=== PATIENT | male | born 1940 | race Asian ===

== ENCOUNTER 2019-03-05 23:12 | Inpatient (IN) | payer MEDICARE, BC ==
[2019-03-05] MEDS: IPRATROPIUM (NEB) 0.5 MG/2.5 ML AMP INH (23:49)
[2019-03-05] MEDS: ALBUTEROL 0.083% (NEB) 2.5 MG/3 ML AMP INH (23:49)
[2019-03-06] MEDS ORDERED: ACETAMINOPHEN 325 MG TAB PO
[2019-03-06 00:06] LABS: MODE NASAL CANNULA; MetHgb Venous 0.2 %; Sample Type Blood venous; Site VENOUS LINE; Venous COHb 0.8 %; Venous Fraction OxyHgb 44.7 %; Venous Oxygen Sat 45.2 mmHG (55.0-75.0); Venous Total Hemglobin 14.6 g/dl
[2019-03-06 00:10] LABS: ADD MAN DIFF? NO
[2019-03-06 00:12] LABS: ABNORMAL IP MESSAGE 1; BASOPHILS % 0.5 % (0.0-2.0); EOSINOPHILS % 0.2 % (0.0-7.0); HEMATOCRIT 40.2 % (42.0-52.0); HEMOGLOBIN 12.9 g/dl (14.0-18.0); LYMPHOCYTES # 0.3 10^3/ul (0.8-2.9); LYMPHOCYTES % 4.2 % (15.0-51.0); MEAN CORPUSCULAR HEMOGLOBIN 31.8 pg (29.0-33.0); MEAN CORPUSCULAR HGB CONC 32.1 g/dl (32.0-37.0); MEAN PLATELET VOLUME 9.6 fl (7.4-10.4); MONOCYTE # 0.6 10^3/ul (0.3-0.9); MONOCYTES % 7.7 % (0.0-11.0); NEUTROPHILS % 86.9 % (39.0-77.0); PLATELET COUNT 291 10^3/UL (140-415); POSITIVE DIFF @See below; RED BLOOD COUNT 4.06 10^6/ul (4.70-6.10); RED CELL DISTRIBUTION WIDTH 13.6 % (11.5-14.5)
[2019-03-06 00:12] LABS: WHITE BLOOD COUNT 8.1 10^3/ul (4.8-10.8)
[2019-03-06 00:32] LABS: INR 1.05; PARTIAL THROMBOPLASTIN TIME 24.4 Sec (23.0-35.0); PROTIME 13.8 Sec (11.9-14.9); PT RATIO 1.1
[2019-03-06 00:34] LABS: ALANINE AMINOTRANSFERASE 17 IU/L (13-69); ALBUMIN/GLOBULIN RATIO 0.95; ALKALINE PHOSPHATASE 137 IU/L (42-121); ANION GAP 10 (5-13); ASPARTATE AMINO TRANSFERASE 29 IU/L (15-46); BILIRUBIN,INDIRECT 0.4 mg/dl (0-1.1); BILIRUBIN,TOTAL 0.4 mg/dl (0.2-1.3); BLOOD UREA NITROGEN 65 mg/dl (7-20); CALCIUM 10.4 mg/dl (8.4-10.2); CARBON DIOXIDE 28 mmol/L (21-31); CHLORIDE 104 mmol/L (97-110); CREATININE 1.29 mg/dl (0.61-1.24); SODIUM 142 mmol/L (135-144); TOTAL PROTEIN 8.2 g/dl (6.1-8.1)
[2019-03-06] MEDS: SODIUM CHLORIDE 0.9% 1L BAG IV* (00:39)
[2019-03-06] MEDS: CEFTRIAXONE 1 GM/50 ML (PMX) 50 ML IVPB ×2 (00:39→08:24)
[2019-03-06 00:51] LABS: GLUCOSE 897 mg/dl (70-220)
[2019-03-06 00:54] LABS: B-TYPE NATRIURETIC PEPTIDE 489 PG/ML (0-450); TROPONIN-I < 0.012 ng/ml (0.000-0.120)
[2019-03-06] MEDS ORDERED: DEXTROSE 50% 50 ML SYRINGE IV ×4 (01:00→17:30)
[2019-03-06] MEDS: AZITHROMYCIN 500MG/NS (PMX) 250 ML IV (01:14)
[2019-03-06] MEDS: SOD CHLORIDE 0.9% 1,000 ML IV ×2 (01:43→04:04)
[2019-03-06] MEDS: ACCU-CHEK XX ×11 (02:00→11:13)
[2019-03-06 02:11] LABS: LACTIC ACID 3.1 mmol/L (0.5-2.0)
[2019-03-06] MEDS: INSULIN HUMAN REGULAR 100 UNIT in SOD CHLORIDE 0.9% 99 ML IV (02:30)
[2019-03-06 03:34] LABS: ADD UMIC NO; UR ASCORBIC ACID 40 mg/dL (NEGATIVE); UR BILIRUBIN (Dip) NEGATIVE (NEGATIVE); UR BLOOD (Dip) NEGATIVE (NEGATIVE); UR CLARITY CLEAR (CLEAR); UR COLOR YELLOW (YELLOW); UR GLUCOSE (Dip) 3+ mg/dL (NEGATIVE); UR KETONES (Dip) NEGATIVE (NEGATIVE); UR LEUKOCYTE ESTERASE (Dip) NEGATIVE Leu/ul (NEGATIVE); UR NITRITE (Dip) NEGATIVE (NEGATIVE); UR SPECIFIC GRAVITY (Dip) 1.023 (1.003-1.030); UR TOTAL PROTEIN (Dip) NEGATIVE (NEGATIVE); UR UROBILINOGEN (Dip) NEGATIVE (NEGATIVE)
[2019-03-06] MEDS ORDERED: ALBUTEROL 0.083% (NEB) 2.5 MG/3 ML AMP HHN (04:00)
[2019-03-06 05:36] LABS: ADD MAN DIFF? NO
[2019-03-06 05:39] LABS: WHITE BLOOD COUNT 9.3 10^3/ul (4.8-10.8)
[2019-03-06 05:39] LABS: ABNORMAL IP MESSAGE 1; BASOPHILS % 0.4 % (0.0-2.0); EOSINOPHILS % 0.2 % (0.0-7.0); HEMATOCRIT 35.3 % (42.0-52.0); HEMOGLOBIN 11.6 g/dl (14.0-18.0); LYMPHOCYTES # 0.3 10^3/ul (0.8-2.9); LYMPHOCYTES % 3.5 % (15.0-51.0); MEAN CORPUSCULAR HEMOGLOBIN 32.2 pg (29.0-33.0); MEAN CORPUSCULAR HGB CONC 32.9 g/dl (32.0-37.0); MEAN CORPUSCULAR VOLUME 98.1 fl (82.0-101.0); MEAN PLATELET VOLUME 9.5 fl (7.4-10.4); MONOCYTE # 0.6 10^3/ul (0.3-0.9); MONOCYTES % 6.6 % (0.0-11.0); NEUTROPHIL # 8.3 10^3/ul (1.6-7.5); NEUTROPHILS % 88.7 % (39.0-77.0); PLATELET COUNT 275 10^3/UL (140-415); POSITIVE DIFF @See below
[2019-03-06 06:19] LABS: ANION GAP 10 (5-13); BLOOD UREA NITROGEN 55 mg/dl (7-20); CALCIUM 9.9 mg/dl (8.4-10.2); CARBON DIOXIDE 26 mmol/L (21-31); CHLORIDE 117 mmol/L (97-110); CREATININE 1.06 mg/dl (0.61-1.24); GLUCOSE 378 mg/dl (70-220); POTASSIUM 3.5 mmol/L (3.5-5.1); SODIUM 153 mmol/L (135-144)
[2019-03-06 06:25] LABS: TROPONIN-I < 0.012 ng/ml (0.000-0.120)
[2019-03-06 06:39] LABS: FREE T4 (FREE THYROXINE) 1.06 ng/dl (0.85-1.93)
[2019-03-06 07:30] LABS: LACTIC ACID 4.2 mmol/L (0.5-2.0)
[2019-03-06 07:43] LABS: BAND NEUTROPHILS #M 2.2 10^3/ul (0.0-0.6); BAND NEUTROPHILS % (M) 24 % (0-4); LYMPHOCYTES #M 0.1 10^3/ul (0.8-2.9); LYMPHOCYTES % (M) 2 % (15-51); MONOCYTE #M 0.3 10^3/ul (0.3-0.9); MONOCYTES % (M) 4 % (0-11); PLATELET ESTIMATE NORMAL; POIKILOCYTOSIS 1+ (0-0); POLYCHROMASIA 1+ (0-0); SEG NEUT #M 6.7 10^3/ul (1.6-7.5); SEGMENTED NEUTROPHILS (M) % 70 % (39-77); SMUDGE%M 40 % (0-0)
[2019-03-06] MEDS: ONDANSETRON 4 MG INJ IV (08:24)
[2019-03-06] MEDS: AZITHROMYCIN 500MG/NS (PMX) 250 ML IVPB (11:07)
[2019-03-06] MEDS ORDERED: POTASSIUM CHLORIDE 20 MEQ in SOD CHLORIDE 0.9% 1,000 ML IV (13:00)
[2019-03-06] MEDS ORDERED: POTASSIUM CHLORIDE 0 ML IVPB (13:03)
[2019-03-06] MEDS: POTASSIUM CHLORIDE 20 MEQ in SOD CHLORIDE 0.9% 1,000 ML IV (14:16)
[2019-03-06] MEDS: INSULIN ASPART [NOVOLOG] 3 ML PEN SC ×3 (14:18→20:17)
[2019-03-06 15:09] LABS: PROCALCITONIN 0.42 ng/mL (0.00-0.10)
[2019-03-06] MEDS ORDERED: GLUCOSE GEL 15 GRAM TUBE BUCCAL (17:30)
[2019-03-06] MEDS ORDERED: GLUCOSE GEL 15 GRAM TUBE PO ×2 (17:30)
[2019-03-06] MEDS ORDERED: GLUCAGON 1 MG INJ IM (17:30)
[2019-03-06] MEDS ORDERED: INSULIN ASPART [NOVOLOG] 3 ML PEN SC (17:35)
[2019-03-06 18:47] LABS: ANION GAP 7 (5-13); BLOOD UREA NITROGEN 37 mg/dl (7-20); CALCIUM 9.2 mg/dl (8.4-10.2); CARBON DIOXIDE 27 mmol/L (21-31); CHLORIDE 118 mmol/L (97-110); CREATININE 0.91 mg/dl (0.61-1.24); GLUCOSE 143 mg/dl (70-220); POTASSIUM 3.9 mmol/L (3.5-5.1); SODIUM 152 mmol/L (135-144)
[2019-03-06] MEDS: traZODone 50 MG TAB PO (20:14)
[2019-03-07] MEDS: POTASSIUM CHLORIDE 20 MEQ in SOD CHLORIDE 0.9% 1,000 ML IV ×4 (00:12→23:16)
[2019-03-07] MEDS: INSULIN ASPART [NOVOLOG] 3 ML PEN SC ×6 (00:16→21:07)
[2019-03-07] MEDS: ACCU-CHEK XX (02:00)
[2019-03-07] MEDS: morphine 4 MG/ML VIAL IV ×3 (02:20→17:45)
[2019-03-07 05:35] LABS: ABNORMAL IP MESSAGE 1; HEMATOCRIT 31.5 % (42.0-52.0); HEMOGLOBIN 9.8 g/dl (14.0-18.0); MEAN CORPUSCULAR HEMOGLOBIN 31.6 pg (29.0-33.0); MEAN CORPUSCULAR HGB CONC 31.1 g/dl (32.0-37.0); MEAN CORPUSCULAR VOLUME 101.6 fl (82.0-101.0); MEAN PLATELET VOLUME 9.7 fl (7.4-10.4); PLATELET COUNT 210 10^3/UL (140-415); POSITIVE DIFF @See below; RED CELL DISTRIBUTION WIDTH 14.2 % (11.5-14.5)
[2019-03-07 05:35] LABS: WHITE BLOOD COUNT 9.3 10^3/ul (4.8-10.8)
[2019-03-07 05:49] LABS: ADD MAN DIFF? YES
[2019-03-07 06:26] LABS: ANION GAP 5 (5-13); BLOOD UREA NITROGEN 28 mg/dl (7-20); CALCIUM 8.7 mg/dl (8.4-10.2); CARBON DIOXIDE 25 mmol/L (21-31); CHLORIDE 119 mmol/L (97-110); CREATININE 0.93 mg/dl (0.61-1.24); GLUCOSE 239 mg/dl (70-220); MAGNESIUM 2.2 mg/dl (1.7-2.5); PHOSPHORUS 3.7 mg/dl (2.5-4.9); POTASSIUM 4.7 mmol/L (3.5-5.1); SODIUM 149 mmol/L (135-144)
[2019-03-07] MEDS: CEFTRIAXONE 1 GM/50 ML (PMX) 50 ML IVPB (08:10)
[2019-03-07 10:20] LABS: BAND NEUTROPHILS #M 3.9 10^3/ul (0.0-0.6); BAND NEUTROPHILS % (M) 43 % (0-4); BURR CELLS 1+ (0-0); LYMPHOCYTES % (M) 1 % (15-51); MONOCYTES % (M) 1 % (0-11); PLATELET ESTIMATE NORMAL; POIKILOCYTOSIS 2+ (0-0); SEG NEUT #M 5.5 10^3/ul (1.6-7.5); SEGMENTED NEUTROPHILS (M) % 55 % (39-77); SMUDGE%M 5 % (0-0)
[2019-03-07] MEDS: AZITHROMYCIN 500MG/NS (PMX) 250 ML IVPB (10:35)
[2019-03-07] MEDS: HYDROGEN PEROXIDE 118 ML TOP (14:30)
[2019-03-07] MEDS: SILVER SULFADIAZINE 1% 25 GM CR TOP (17:11)
[2019-03-07] MEDS: IOHEXOL 300MG/ML 150 ML BTL (18:52)
[2019-03-07] MEDS: SOD CHLORIDE 0.9% 100 ML (18:52)
[2019-03-08] MEDS: ACCU-CHEK XX (02:00)
[2019-03-08] MEDS: INSULIN ASPART [NOVOLOG] 3 ML PEN SC ×6 (02:37→21:21)
[2019-03-08 06:14] LABS: WHITE BLOOD COUNT 9.6 10^3/ul (4.8-10.8)
[2019-03-08 06:14] LABS: ABNORMAL IP MESSAGE 1; HEMATOCRIT 31.6 % (42.0-52.0); HEMOGLOBIN 10.1 g/dl (14.0-18.0); MEAN CORPUSCULAR HEMOGLOBIN 32.2 pg (29.0-33.0); MEAN CORPUSCULAR VOLUME 100.6 fl (82.0-101.0); MEAN PLATELET VOLUME 9.3 fl (7.4-10.4); PLATELET COUNT 182 10^3/UL (140-415); POSITIVE DIFF @See below; RED BLOOD COUNT 3.14 10^6/ul (4.70-6.10); RED CELL DISTRIBUTION WIDTH 14.3 % (11.5-14.5)
[2019-03-08 06:49] LABS: ADD MAN DIFF? YES
[2019-03-08 07:12] LABS: ANION GAP 4 (5-13); BLOOD UREA NITROGEN 19 mg/dl (7-20); CALCIUM 8.8 mg/dl (8.4-10.2); CARBON DIOXIDE 24 mmol/L (21-31); CHLORIDE 119 mmol/L (97-110); CREATININE 0.84 mg/dl (0.61-1.24); GLUCOSE 143 mg/dl (70-220); POTASSIUM 4.3 mmol/L (3.5-5.1); SODIUM 147 mmol/L (135-144)
[2019-03-08] MEDS ORDERED: SILVER SULFADIAZINE 1% 25 GM CR TOP (09:00)
[2019-03-08] MEDS: SILVER SULFADIAZINE 1% 25 GM CR TOP (09:34)
[2019-03-08] MEDS: AZITHROMYCIN 500MG/NS (PMX) 250 ML IVPB (09:37)
[2019-03-08] MEDS: HYDROGEN PEROXIDE 118 ML TOP (09:48)
[2019-03-08 10:19] LABS: ANISOCYTOSIS 1+ (0-0); BAND NEUTROPHILS #M 2.8 10^3/ul (0.0-0.6); BAND NEUTROPHILS % (M) 30 % (0-4); BURR CELLS 1+ (0-0); EOSINOPHILS % (M) 1 % (0-7); LYMPHOCYTES #M 0.4 10^3/ul (0.8-2.9); LYMPHOCYTES % (M) 5 % (15-51); MONOCYTE #M 0.4 10^3/ul (0.3-0.9); MONOCYTES % (M) 5 % (0-11); MYELOCYTES % (M) 1 % (0-0); PLATELET ESTIMATE NORMAL; POIKILOCYTOSIS 2+ (0-0); SEG NEUT #M 5.8 10^3/ul (1.6-7.5); SEGMENTED NEUTROPHILS (M) % 58 % (39-77); SMUDGE%M 1 % (0-0)
[2019-03-08] MEDS: PIPER-TAZO 2.25 GM (PMX) 50 ML IVPB ×3 (12:50→23:36)
[2019-03-08] MEDS: CEFAZOLIN 1 GM/50 ML (PMX) 50 ML IVPB (15:36)
[2019-03-08] MEDS ORDERED: FENTAnyl 50 MCG/ML VIAL IV ×2 (16:30)
[2019-03-08] MEDS ORDERED: EPHEDrine 25 MG/5 ML SYG IV (16:30)
[2019-03-08] MEDS ORDERED: ONDANSETRON 4 MG INJ IV (16:30)
[2019-03-08] MEDS ORDERED: HYDROmorphONE 0.5 MG/0.5 ML SYG IV ×2 (16:30)
[2019-03-08] MEDS ORDERED: LABETALOL HCL 20MG INJ IV (16:30)
[2019-03-08] MEDS: POTASSIUM CHLORIDE 20 MEQ in SOD CHLORIDE 0.9% 1,000 ML IV ×2 (16:39→22:15)
[2019-03-08] MEDS: METOCLOPRAMIDE 10 MG INJ IV (21:19)
[2019-03-08] MEDS: morphine 4 MG/ML VIAL IV (21:19)
[2019-03-09] MEDS: INSULIN GLARGINE [LANTus] (100 UNITS/ML) SYG SC (00:03)
[2019-03-09] MEDS: INSULIN ASPART [NOVOLOG] 3 ML PEN SC ×6 (01:14→21:16)
[2019-03-09] MEDS: ACCU-CHEK XX (02:00)
[2019-03-09] MEDS: POTASSIUM CHLORIDE 20 MEQ in SOD CHLORIDE 0.9% 1,000 ML IV (03:45)
[2019-03-09] MEDS: PIPER-TAZO 2.25 GM (PMX) 50 ML IVPB (05:42)
[2019-03-09 06:43] LABS: ABNORMAL IP MESSAGE 1; HEMATOCRIT 30.1 % (42.0-52.0); HEMOGLOBIN 9.5 g/dl (14.0-18.0); MEAN CORPUSCULAR HEMOGLOBIN 31.4 pg (29.0-33.0); MEAN CORPUSCULAR HGB CONC 31.6 g/dl (32.0-37.0); MEAN CORPUSCULAR VOLUME 99.3 fl (82.0-101.0); MEAN PLATELET VOLUME 9.4 fl (7.4-10.4); PLATELET COUNT 177 10^3/UL (140-415); POSITIVE DIFF @See below; RED BLOOD COUNT 3.03 10^6/ul (4.70-6.10)
[2019-03-09 06:43] LABS: WHITE BLOOD COUNT 8.6 10^3/ul (4.8-10.8)
[2019-03-09 06:46] LABS: ADD MAN DIFF? YES
[2019-03-09 07:01] LABS: ANION GAP 6 (5-13); BLOOD UREA NITROGEN 20 mg/dl (7-20); CALCIUM 8.3 mg/dl (8.4-10.2); CARBON DIOXIDE 23 mmol/L (21-31); CHLORIDE 117 mmol/L (97-110); CREATININE 0.94 mg/dl (0.61-1.24); GLUCOSE 204 mg/dl (70-220); POTASSIUM 3.8 mmol/L (3.5-5.1); SODIUM 146 mmol/L (135-144)
[2019-03-09 07:48] LABS: PROCALCITONIN 0.88 ng/mL (0.00-0.10)
[2019-03-09] MEDS: HYDROGEN PEROXIDE 118 ML TOP (09:00)
[2019-03-09 09:40] LABS: ANISOCYTOSIS 1+ (0-0); BAND NEUTROPHILS #M 1.9 10^3/ul (0.0-0.6); BAND NEUTROPHILS % (M) 23 % (0-4); LYMPHOCYTES % (M) 1 % (15-51); MICROCYTOSIS 1+ (0-0); MONOCYTES % (M) 1 % (0-11); PLATELET ESTIMATE NORMAL; POLYCHROMASIA 3+ (0-0); SEG NEUT #M 6.6 10^3/ul (1.6-7.5); SEGMENTED NEUTROPHILS (M) % 75 % (39-77)
[2019-03-09] MEDS: SILVER SULFADIAZINE 1% 25 GM CR TOP (10:18)
[2019-03-09] MEDS: FLUCONAZOLE 100 MG TAB GTB (10:18)
[2019-03-09] MEDS: AZITHROMYCIN 500MG/NS (PMX) 250 ML IVPB (10:21)
[2019-03-09] MEDS: ACETAMINOPHEN 500 MG TAB PO (10:34)
[2019-03-09] MEDS: AMPICILLIN/SULB 3 GM/NS (PMX) 100 ML IVPB ×3 (12:30→23:46)
[2019-03-09] MEDS: NS + KCL 20 MEQ 1,000 ML IV (18:11)
[2019-03-10] MEDS: morphine 4 MG/ML VIAL IV ×2 (00:47→22:36)
[2019-03-10] MEDS: INSULIN ASPART [NOVOLOG] 3 ML PEN SC ×6 (00:59→21:29)
[2019-03-10] MEDS: ACCU-CHEK XX (02:00)
[2019-03-10] MEDS: AMPICILLIN/SULB 3 GM/NS (PMX) 100 ML IVPB ×3 (05:27→17:23)
[2019-03-10] MEDS: ACETAMINOPHEN 500 MG TAB PO ×3 (07:06→18:58)
[2019-03-10 07:08] LABS: ABNORMAL IP MESSAGE 1; HEMOGLOBIN 10.6 g/dl (14.0-18.0); MEAN CORPUSCULAR HEMOGLOBIN 31.2 pg (29.0-33.0); MEAN CORPUSCULAR HGB CONC 32.1 g/dl (32.0-37.0); MEAN CORPUSCULAR VOLUME 97.1 fl (82.0-101.0); MEAN PLATELET VOLUME 9.4 fl (7.4-10.4); PLATELET COUNT 178 10^3/UL (140-415); POSITIVE DIFF @See below; RED CELL DISTRIBUTION WIDTH 13.4 % (11.5-14.5)
[2019-03-10 07:08] LABS: WHITE BLOOD COUNT 6.4 10^3/ul (4.8-10.8)
[2019-03-10 07:17] LABS: ADD MAN DIFF? YES
[2019-03-10 07:29] LABS: ANION GAP 9 (5-13); BLOOD UREA NITROGEN 20 mg/dl (7-20); CALCIUM 8.3 mg/dl (8.4-10.2); CARBON DIOXIDE 25 mmol/L (21-31); CHLORIDE 110 mmol/L (97-110); CREATININE 0.83 mg/dl (0.61-1.24); GLUCOSE 347 mg/dl (70-220); POTASSIUM 3.4 mmol/L (3.5-5.1); SODIUM 144 mmol/L (135-144)
[2019-03-10] MEDS: FLUCONAZOLE 100 MG TAB GTB (09:00)
[2019-03-10] MEDS: SILVER SULFADIAZINE 1% 25 GM CR TOP (09:00)
[2019-03-10] MEDS: HYDROGEN PEROXIDE 118 ML TOP (09:01)
[2019-03-10] MEDS: AZITHROMYCIN 500MG/NS (PMX) 250 ML IVPB (09:11)
[2019-03-10 09:57] LABS: IRON 11 ug/dl (35-150)
[2019-03-10 10:06] LABS: % IRON SATURATION 6 % SAT (22-52); TOTAL IRON BINDING CAPACITY 174 ug/dl (241-421)
[2019-03-10 10:51] LABS: ANISOCYTOSIS 1+ (0-0); BAND NEUTROPHILS #M 2.2 10^3/ul (0.0-0.6); BAND NEUTROPHILS % (M) 35 % (0-4); EOSINOPHILS % (M) 9 % (0-7); LYMPHOCYTES #M 0.1 10^3/ul (0.8-2.9); LYMPHOCYTES % (M) 3 % (15-51); MONOCYTE #M 0.3 10^3/ul (0.3-0.9); MONOCYTES % (M) 6 % (0-11); PLATELET ESTIMATE NORMAL; SEG NEUT #M 3.1 10^3/ul (1.6-7.5); SEGMENTED NEUTROPHILS (M) % 47 % (39-77); SMUDGE%M 53 % (0-0)
[2019-03-10] MEDS: POTASSIUM CHLORIDE 40 MEQ in SOD CHLORIDE 0.9% 1,000 ML IV (11:25)
[2019-03-10 13:18] LABS: FERRITIN 80.8 ng/ml (11.1-264.0)
[2019-03-10 13:48] LABS: FOLATE 19.3 ng/ml (2.8-20.0)
[2019-03-10] MEDS: BIOTENE SALIVA STIMULANT SPRAY MUCOUSMEM (14:34)
[2019-03-10] MEDS: INSULIN GLARGINE [LANTus] (100 UNITS/ML) SYG SC (21:24)
[2019-03-10] MEDS: ONDANSETRON 4 MG INJ IV (22:36)
[2019-03-11] MEDS: AMPICILLIN/SULB 3 GM/NS (PMX) 100 ML IVPB ×2 (00:24→05:27)
[2019-03-11] MEDS: INSULIN ASPART [NOVOLOG] 3 ML PEN SC ×6 (01:00→20:45)
[2019-03-11] MEDS: ACCU-CHEK XX (02:00)
[2019-03-11] MEDS: POTASSIUM CHLORIDE 40 MEQ in SOD CHLORIDE 0.9% 1,000 ML IV (05:27)
[2019-03-11 07:03] LABS: ADD MAN DIFF? NO
[2019-03-11 07:10] LABS: WHITE BLOOD COUNT 5.7 10^3/ul (4.8-10.8)
[2019-03-11 07:10] LABS: ABNORMAL IP MESSAGE 1; BASOPHILS % 0.7 % (0.0-2.0); EOSINOPHILS # 0.5 10^3/ul (0.0-0.5); EOSINOPHILS % 8.4 % (0.0-7.0); HEMATOCRIT 30.7 % (42.0-52.0); LYMPHOCYTES # 0.2 10^3/ul (0.8-2.9); LYMPHOCYTES % 3.7 % (15.0-51.0); MEAN CORPUSCULAR HEMOGLOBIN 31.8 pg (29.0-33.0); MEAN CORPUSCULAR HGB CONC 32.6 g/dl (32.0-37.0); MEAN CORPUSCULAR VOLUME 97.8 fl (82.0-101.0); MEAN PLATELET VOLUME 9.3 fl (7.4-10.4); MONOCYTE # 0.3 10^3/ul (0.3-0.9); MONOCYTES % 5.8 % (0.0-11.0); NEUTROPHIL # 4.6 10^3/ul (1.6-7.5); NEUTROPHILS % 80.3 % (39.0-77.0); PLATELET COUNT 164 10^3/UL (140-415); POSITIVE DIFF @See below; RED BLOOD COUNT 3.14 10^6/ul (4.70-6.10); RED CELL DISTRIBUTION WIDTH 13.4 % (11.5-14.5)
[2019-03-11 07:16] LABS: ANION GAP 5 (5-13); BLOOD UREA NITROGEN 20 mg/dl (7-20); CARBON DIOXIDE 25 mmol/L (21-31); CHLORIDE 111 mmol/L (97-110); CREATININE 0.79 mg/dl (0.61-1.24); GLUCOSE 208 mg/dl (70-220); POTASSIUM 3.6 mmol/L (3.5-5.1); SODIUM 141 mmol/L (135-144)
[2019-03-11 08:14] LABS: PROCALCITONIN 0.73 ng/mL (0.00-0.10)
[2019-03-11] MEDS: SILVER SULFADIAZINE 1% 25 GM CR TOP (08:29)
[2019-03-11] MEDS: FLUCONAZOLE 100 MG TAB GTB (08:29)
[2019-03-11 08:30] LABS: BAND NEUTROPHILS #M 1.5 10^3/ul (0.0-0.6); BAND NEUTROPHILS % (M) 27 % (0-4); EOSINOPHILS % (M) 12 % (0-7); LYMPHOCYTES #M 0.3 10^3/ul (0.8-2.9); LYMPHOCYTES % (M) 6 % (15-51); METAMYELOCYTES %M 1 % (0-0); MONOCYTE #M 0.3 10^3/ul (0.3-0.9); MONOCYTES % (M) 7 % (0-11); PLATELET ESTIMATE NORMAL; SEG NEUT #M 2.8 10^3/ul (1.6-7.5); SEGMENTED NEUTROPHILS (M) % 47 % (39-77); SMUDGE%M 14 % (0-0)
[2019-03-11] MEDS: HYDROGEN PEROXIDE 118 ML TOP (08:30)
[2019-03-11] MEDS: BIOTENE SALIVA STIMULANT SPRAY MUCOUSMEM (08:48)
[2019-03-11] MEDS: AZITHROMYCIN 250 MG TAB GTB (09:32)
[2019-03-11] MEDS: AMOXICILLIN/CLAV 875 MG TAB GTB ×2 (09:32→20:32)
[2019-03-11] MEDS: ACETAMINOPHEN 500 MG TAB PO (13:14)
[2019-03-11] MEDS: BISACODYL 10 MG SUPP PR (17:52)
[2019-03-11] MEDS: INSULIN GLARGINE [LANTus] (100 UNITS/ML) SYG SC (20:33)
[2019-03-11] MEDS: ENOXAPARIN 30 MG/0.3 ML SYG SC (20:45)
[2019-03-11] MEDS: morphine 4 MG/ML VIAL IV (21:53)
[2019-03-11] MEDS: ONDANSETRON 4 MG INJ IV (21:54)
[2019-03-12] MEDS: INSULIN ASPART [NOVOLOG] 3 ML PEN SC ×6 (01:00→20:54)
[2019-03-12] MEDS: POTASSIUM CHLORIDE 40 MEQ in SOD CHLORIDE 0.9% 1,000 ML IV ×2 (03:44→23:18)
[2019-03-12] MEDS: FLUCONAZOLE 100 MG TAB GTB (08:12)
[2019-03-12] MEDS: AMOXICILLIN/CLAV 875 MG TAB GTB ×2 (08:12→20:48)
[2019-03-12] MEDS: POLYETHYLENE GLYCOL 17 GM PACKET GTB (08:12)
[2019-03-12] MEDS: AZITHROMYCIN 250 MG TAB GTB (08:13)
[2019-03-12] MEDS: ACETAMINOPHEN 500 MG TAB PO ×2 (08:13→16:31)
[2019-03-12] MEDS: BIOTENE SALIVA STIMULANT SPRAY MUCOUSMEM (08:13)
[2019-03-12] MEDS: SILVER SULFADIAZINE 1% 25 GM CR TOP (08:13)
[2019-03-12 08:52] LABS: PROCALCITONIN 0.68 ng/mL (0.00-0.10)
[2019-03-12] MEDS: HYDROGEN PEROXIDE 118 ML TOP (09:00)
[2019-03-12] MEDS: ENOXAPARIN 30 MG/0.3 ML SYG SC (10:32)
[2019-03-12] MEDS: INSULIN GLARGINE [LANTus] (100 UNITS/ML) SYG SC (20:55)
[2019-03-12] MEDS: morphine 4 MG/ML VIAL IV (23:12)
[2019-03-13] MEDS: INSULIN ASPART [NOVOLOG] 3 ML PEN SC ×6 (01:51→20:08)
[2019-03-13 06:24] LABS: WHITE BLOOD COUNT 5.6 10^3/ul (4.8-10.8)
[2019-03-13 06:24] LABS: ABNORMAL IP MESSAGE 1; HEMATOCRIT 31.2 % (42.0-52.0); HEMOGLOBIN 10.2 g/dl (14.0-18.0); MEAN CORPUSCULAR HEMOGLOBIN 31.3 pg (29.0-33.0); MEAN CORPUSCULAR HGB CONC 32.7 g/dl (32.0-37.0); MEAN CORPUSCULAR VOLUME 95.7 fl (82.0-101.0); MEAN PLATELET VOLUME 9.6 fl (7.4-10.4); PLATELET COUNT 219 10^3/UL (140-415); POSITIVE DIFF @See below; RED BLOOD COUNT 3.26 10^6/ul (4.70-6.10); RED CELL DISTRIBUTION WIDTH 13.4 % (11.5-14.5)
[2019-03-13 06:27] LABS: ADD MAN DIFF? YES
[2019-03-13 07:10] LABS: ALANINE AMINOTRANSFERASE 21 IU/L (13-69); ALBUMIN 2.6 g/dl (3.3-4.9); ALBUMIN/GLOBULIN RATIO 0.74; ALKALINE PHOSPHATASE 178 IU/L (42-121); ANION GAP 5 (5-13); ASPARTATE AMINO TRANSFERASE 32 IU/L (15-46); BILIRUBIN,INDIRECT 0.2 mg/dl (0-1.1); BILIRUBIN,TOTAL 0.2 mg/dl (0.2-1.3); BLOOD UREA NITROGEN 20 mg/dl (7-20); CALCIUM 8.5 mg/dl (8.4-10.2); CARBON DIOXIDE 26 mmol/L (21-31); CHLORIDE 106 mmol/L (97-110); CREATININE 0.86 mg/dl (0.61-1.24); GLUCOSE 225 mg/dl (70-220); POTASSIUM 4.4 mmol/L (3.5-5.1); SODIUM 137 mmol/L (135-144); TOTAL PROTEIN 6.1 g/dl (6.1-8.1)
[2019-03-13] MEDS: AZITHROMYCIN 250 MG TAB GTB (08:50)
[2019-03-13] MEDS: FLUCONAZOLE 100 MG TAB GTB (08:50)
[2019-03-13] MEDS: AMOXICILLIN/CLAV 875 MG TAB GTB ×2 (08:50→20:02)
[2019-03-13] MEDS: POLYETHYLENE GLYCOL 17 GM PACKET GTB (08:51)
[2019-03-13] MEDS: ENOXAPARIN 30 MG/0.3 ML SYG SC (09:36)
[2019-03-13] MEDS: SILVER SULFADIAZINE 1% 25 GM CR TOP (09:45)
[2019-03-13] MEDS: HYDROGEN PEROXIDE 118 ML TOP (09:46)
[2019-03-13 09:53] LABS: BAND NEUTROPHILS #M 1.1 10^3/ul (0.0-0.6); BAND NEUTROPHILS % (M) 21 % (0-4); EOSINOPHILS % (M) 7 % (0-7); LYMPHOCYTES #M 0.2 10^3/ul (0.8-2.9); LYMPHOCYTES % (M) 4 % (15-51); MONOCYTE #M 0.3 10^3/ul (0.3-0.9); MONOCYTES % (M) 6 % (0-11); PLASMAC%(M) 1 % (0); PLATELET ESTIMATE NORMAL; SEG NEUT #M 3.5 10^3/ul (1.6-7.5); SEGMENTED NEUTROPHILS (M) % 61 % (39-77); SMUDGE%M 7 % (0-0)
[2019-03-13] MEDS: ACETAMINOPHEN 500 MG TAB PO ×2 (11:57→20:20)
[2019-03-13] MEDS: INSULIN GLARGINE [LANTus] (100 UNITS/ML) SYG SC (20:26)
[2019-03-13] MEDS: morphine 4 MG/ML VIAL IV (23:29)
[2019-03-14] MEDS: INSULIN ASPART [NOVOLOG] 3 ML PEN SC ×6 (00:39→20:44)
[2019-03-14] MEDS: FLUCONAZOLE 100 MG TAB GTB (08:24)
[2019-03-14] MEDS: AMOXICILLIN/CLAV 875 MG TAB GTB ×2 (08:24→20:32)
[2019-03-14] MEDS: SILVER SULFADIAZINE 1% 25 GM CR TOP (08:25)
[2019-03-14] MEDS: HYDROGEN PEROXIDE 118 ML TOP (08:25)
[2019-03-14] MEDS: POLYETHYLENE GLYCOL 17 GM PACKET GTB (08:25)
[2019-03-14] MEDS: ENOXAPARIN 30 MG/0.3 ML SYG SC (09:14)
[2019-03-14] MEDS: ESCITALOPRAM 10 MG TAB GTB (16:52)
[2019-03-14] MEDS: INSULIN GLARGINE [LANTus] (100 UNITS/ML) SYG SC (20:44)
[2019-03-14] MEDS: morphine 2 MG INJ IV (23:09)
[2019-03-15] MEDS: INSULIN ASPART [NOVOLOG] 3 ML PEN SC ×5 (01:18→23:11)
[2019-03-15] MEDS: AMOXICILLIN/CLAV 875 MG TAB GTB ×2 (08:42→20:48)
[2019-03-15] MEDS: FLUCONAZOLE 100 MG TAB GTB (08:42)
[2019-03-15] MEDS: ESCITALOPRAM 10 MG TAB GTB (08:42)
[2019-03-15] MEDS: ENOXAPARIN 30 MG/0.3 ML SYG SC (08:55)
[2019-03-15] MEDS: HYDROGEN PEROXIDE 118 ML TOP (08:59)
[2019-03-15] MEDS: SILVER SULFADIAZINE 1% 25 GM CR TOP (08:59)
[2019-03-15] MEDS ORDERED: POLYETHYLENE GLYCOL 17 GM PACKET GTB (09:00)
[2019-03-15] MEDS: INSULIN GLARGINE [LANTus] (100 UNITS/ML) SYG SC (20:49)
[2019-03-16] MEDS: INSULIN ASPART [NOVOLOG] 3 ML PEN SC ×3 (06:19→22:22)
[2019-03-16] MEDS: ESCITALOPRAM 10 MG TAB GTB (08:29)
[2019-03-16] MEDS: FLUCONAZOLE 100 MG TAB GTB (08:29)
[2019-03-16] MEDS: AMOXICILLIN/CLAV 875 MG TAB GTB ×2 (08:29→20:28)
[2019-03-16] MEDS: ENOXAPARIN 30 MG/0.3 ML SYG SC (08:31)
[2019-03-16] MEDS: HYDROGEN PEROXIDE 118 ML TOP ×2 (08:39→11:41)
[2019-03-16] MEDS: SILVER SULFADIAZINE 1% 25 GM CR TOP (08:39)
[2019-03-16] MEDS: ACETAMINOPHEN 500 MG TAB PO (12:49)
[2019-03-16] MEDS: INSULIN GLARGINE [LANTus] (100 UNITS/ML) SYG SC (20:30)
[2019-03-17] MEDS: INSULIN ASPART [NOVOLOG] 3 ML PEN SC ×3 (05:56→21:52)
[2019-03-17 06:38] LABS: WHITE BLOOD COUNT 6.1 10^3/ul (4.8-10.8)
[2019-03-17 06:38] LABS: ABNORMAL IP MESSAGE 1; HEMATOCRIT 32.9 % (42.0-52.0); HEMOGLOBIN 10.8 g/dl (14.0-18.0); MEAN CORPUSCULAR HGB CONC 32.8 g/dl (32.0-37.0); MEAN CORPUSCULAR VOLUME 94.5 fl (82.0-101.0); MEAN PLATELET VOLUME 9.2 fl (7.4-10.4); PLATELET COUNT 363 10^3/UL (140-415); POSITIVE DIFF @See below; RED BLOOD COUNT 3.48 10^6/ul (4.70-6.10); RED CELL DISTRIBUTION WIDTH 13.2 % (11.5-14.5)
[2019-03-17 06:47] LABS: ADD MAN DIFF? YES
[2019-03-17 07:00] LABS: ANION GAP 8 (5-13); BLOOD UREA NITROGEN 28 mg/dl (7-20); CALCIUM 9.1 mg/dl (8.4-10.2); CARBON DIOXIDE 28 mmol/L (21-31); CHLORIDE 98 mmol/L (97-110); GLUCOSE 209 mg/dl (70-220); POTASSIUM 3.9 mmol/L (3.5-5.1); SODIUM 134 mmol/L (135-144)
[2019-03-17 08:10] LABS: BAND NEUTROPHILS #M 0.5 10^3/ul (0.0-0.6); BAND NEUTROPHILS % (M) 9 % (0-4); EOSINOPHILS % (M) 8 % (0-7); LYMPHOCYTES #M 0.6 10^3/ul (0.8-2.9); LYMPHOCYTES % (M) 10 % (15-51); MONOCYTE #M 0.7 10^3/ul (0.3-0.9); MONOCYTES % (M) 13 % (0-11); PLATELET ESTIMATE NORMAL; SEG NEUT #M 3.7 10^3/ul (1.6-7.5); SEGMENTED NEUTROPHILS (M) % 60 % (39-77); SMUDGE%M 15 % (0-0)
[2019-03-17] MEDS: ESCITALOPRAM 10 MG TAB GTB (08:26)
[2019-03-17] MEDS: AMOXICILLIN/CLAV 875 MG TAB GTB ×2 (08:26→21:14)
[2019-03-17] MEDS: ENOXAPARIN 30 MG/0.3 ML SYG SC (08:26)
[2019-03-17] MEDS: SILVER SULFADIAZINE 1% 25 GM CR TOP (08:34)
[2019-03-17] MEDS: HYDROGEN PEROXIDE 118 ML TOP (08:34)
[2019-03-17] MEDS: NYSTATIN 15 GM CR TOP ×3 (09:37→21:15)
[2019-03-17] MEDS: ONDANSETRON 4 MG INJ IV (18:09)
[2019-03-17] MEDS: INSULIN GLARGINE [LANTus] (100 UNITS/ML) SYG SC (21:15)
[2019-03-18] MEDS: INSULIN ASPART [NOVOLOG] 3 ML PEN SC ×2 (05:47→14:22)
[2019-03-18] MEDS: ESCITALOPRAM 10 MG TAB GTB (10:44)
[2019-03-18] MEDS: AMOXICILLIN/CLAV 875 MG TAB GTB (10:44)
[2019-03-18] MEDS: ENOXAPARIN 30 MG/0.3 ML SYG SC (10:45)
[2019-03-18] MEDS: SILVER SULFADIAZINE 1% 25 GM CR TOP (10:46)
[2019-03-18] MEDS: HYDROGEN PEROXIDE 118 ML TOP (10:46)
[2019-03-18] MEDS: NYSTATIN 15 GM CR TOP ×2 (10:46→14:15)
== END 2019-03-18 19:27 | DRG 637 ==
LOC: E/R 23:12 → PP2 03-15 10:35 → TEL 03-08 22:00 → ICU 23:50
PROC: 0DH63UZ Insertion of Feeding Device into Stomach, Percutaneous Approach (ICD-10-PCS; principal; 2019-03-08 15:00)
DX: E11.65 Type 2 diabetes mellitus with hyperglycemia (principal); J69.0 Pneumonitis due to inhalation of food and vomit; E43 Unspecified severe protein-calorie malnutrition; E87.2 Acidosis; Z68.1 Body mass index [BMI] 19.9 or less, adult; C02.9 Malignant neoplasm of tongue, unspecified; R13.10 Dysphagia, unspecified; E03.9 Hypothyroidism, unspecified; F32.9 Major depressive disorder, single episode, unspecified; E87.5 Hyperkalemia
CPT/HCPCS: 36415; 71045; 71260; 74230; 80048; 80053; 81003; 82607; 82728; 82746; 82803; 82962; 83540; 83605; 83735; 83880; 84100; 84145; 84439; 84443; 84484; 85025; 85610; 85730; 87040-91; 87070; 87081; 87086; 87116; 92526; 92610; 92611; 93005; 94664; 97110; 97116; 97161; 97530; 99285-25

== ENCOUNTER 2019-03-18 19:41 | Inpatient (IN) | payer MEDICARE, BC ==
[2019-03-18] MEDS ORDERED: BIOTENE SALIVA STIMULANT SPRAY MUCOUSMEM (22:00)
[2019-03-18] MEDS ORDERED: LACTULOSE 30ML CUP PO (22:00)
[2019-03-18] MEDS ORDERED: POLYETHYLENE GLYCOL 17 GM PACKET GTB (22:00)
[2019-03-18] MEDS ORDERED: ONDANSETRON 4 MG INJ IV (22:00)
[2019-03-18] MEDS ORDERED: BISACODYL 10 MG SUPP PR (22:00)
[2019-03-18] MEDS ORDERED: MAGNESIUM HYDROXIDE 30ML CUP PO (22:00)
[2019-03-18] MEDS ORDERED: GLUCOSE GEL 15 GRAM TUBE PO ×2 (22:30)
[2019-03-18] MEDS ORDERED: GLUCOSE GEL 15 GRAM TUBE BUCCAL (22:30)
[2019-03-18] MEDS ORDERED: DEXTROSE 50% 50 ML SYRINGE IV (22:30)
[2019-03-18] MEDS ORDERED: GLUCAGON 1 MG INJ IM (22:30)
[2019-03-18] MEDS: AMOXICILLIN/CLAV 875 MG TAB GTB (23:03)
[2019-03-18] MEDS: INSULIN GLARGINE [LANTus] (100 UNITS/ML) SYG SC (23:05)
[2019-03-18] MEDS: INSULIN ASPART [NOVOLOG] 3 ML PEN SC (23:05)
[2019-03-19] MEDS: ALBUTEROL 0.083% (NEB) 2.5 MG/3 ML AMP HHN ×6 (00:53→20:50)
[2019-03-19] MEDS: INSULIN ASPART [NOVOLOG] 3 ML PEN SC ×3 (06:30→22:46)
[2019-03-19 07:25] LABS: ADD MAN DIFF? NO
[2019-03-19 07:28] LABS: ABNORMAL IP MESSAGE 1; BASOPHIL # 0.1 10^3/ul (0.0-0.1); BASOPHILS % 1.2 % (0.0-2.0); EOSINOPHILS # 0.3 10^3/ul (0.0-0.5); EOSINOPHILS % 4.9 % (0.0-7.0); HEMATOCRIT 33.6 % (42.0-52.0); HEMOGLOBIN 10.9 g/dl (14.0-18.0); LYMPHOCYTES # 0.4 10^3/ul (0.8-2.9); LYMPHOCYTES % 6.9 % (15.0-51.0); MEAN CORPUSCULAR HGB CONC 32.4 g/dl (32.0-37.0); MEAN CORPUSCULAR VOLUME 95.5 fl (82.0-101.0); MEAN PLATELET VOLUME 9.2 fl (7.4-10.4); MONOCYTE # 0.6 10^3/ul (0.3-0.9); MONOCYTES % 10.1 % (0.0-11.0); NEUTROPHIL # 4.5 10^3/ul (1.6-7.5); NEUTROPHILS % 75.4 % (39.0-77.0); PLATELET COUNT 442 10^3/UL (140-415); POSITIVE DIFF @See below; RED BLOOD COUNT 3.52 10^6/ul (4.70-6.10); RED CELL DISTRIBUTION WIDTH 13.2 % (11.5-14.5)
[2019-03-19 07:54] LABS: ALANINE AMINOTRANSFERASE 33 IU/L (13-69); ALBUMIN/GLOBULIN RATIO 0.73; ALKALINE PHOSPHATASE 175 IU/L (42-121); ANION GAP 6 (5-13); ASPARTATE AMINO TRANSFERASE 41 IU/L (15-46); BILIRUBIN,INDIRECT 0.2 mg/dl (0-1.1); BILIRUBIN,TOTAL 0.2 mg/dl (0.2-1.3); BLOOD UREA NITROGEN 37 mg/dl (7-20); CARBON DIOXIDE 31 mmol/L (21-31); CHLORIDE 98 mmol/L (97-110); CREATININE 0.86 mg/dl (0.61-1.24); GLUCOSE 297 mg/dl (70-220); POTASSIUM 4.1 mmol/L (3.5-5.1); SODIUM 135 mmol/L (135-144); TOTAL PROTEIN 7.1 g/dl (6.1-8.1)
[2019-03-19] MEDS: AMOXICILLIN/CLAV 875 MG TAB GTB ×2 (08:20→22:43)
[2019-03-19] MEDS: ENOXAPARIN 30 MG/0.3 ML SYG SC (08:36)
[2019-03-19] MEDS: SILVER SULFADIAZINE 1% 25 GM CR TOP (08:41)
[2019-03-19] MEDS: ESCITALOPRAM 10 MG TAB GTB (08:41)
[2019-03-19] MEDS: NYSTATIN 15 GM CR TOP ×3 (08:41→22:43)
[2019-03-19] MEDS: HYDROGEN PEROXIDE 118 ML TOP (08:42)
[2019-03-19] MEDS ORDERED: DOCUSATE SODIUM 100 MG CAP PO (09:00)
[2019-03-19 10:25] LABS: WHITE BLOOD COUNT 8.3 10^3/ul (4.8-10.8)
[2019-03-19 10:25] LABS: ABNORMAL IP MESSAGE 1; HEMATOCRIT 35.3 % (42.0-52.0); HEMOGLOBIN 11.6 g/dl (14.0-18.0); MEAN CORPUSCULAR HEMOGLOBIN 31.2 pg (29.0-33.0); MEAN CORPUSCULAR HGB CONC 32.9 g/dl (32.0-37.0); MEAN CORPUSCULAR VOLUME 94.9 fl (82.0-101.0); MEAN PLATELET VOLUME 9.1 fl (7.4-10.4); PLATELET COUNT 513 10^3/UL (140-415); POSITIVE DIFF @See below; RED BLOOD COUNT 3.72 10^6/ul (4.70-6.10); RED CELL DISTRIBUTION WIDTH 13.3 % (11.5-14.5)
[2019-03-19 10:31] LABS: ADD MAN DIFF? YES
[2019-03-19] MEDS: DOCUSATE SODIUM 10 MG/ML (10ML CUP) GTB ×2 (10:33→21:00)
[2019-03-19 10:44] LABS: ANION GAP 12 (5-13); BLOOD UREA NITROGEN 35 mg/dl (7-20); CALCIUM 9.5 mg/dl (8.4-10.2); CARBON DIOXIDE 29 mmol/L (21-31); CHLORIDE 99 mmol/L (97-110); CREATININE 0.84 mg/dl (0.61-1.24); GLUCOSE 169 mg/dl (70-220); POTASSIUM 4.2 mmol/L (3.5-5.1); SODIUM 140 mmol/L (135-144)
[2019-03-19 10:56] LABS: TROPONIN-I < 0.012 ng/ml (0.000-0.120)
[2019-03-19 11:01] LABS: AADO2 Arterial 198.6 mmHg (7.0-24.0); Allen Test ACCEPTAB; Arterial Base Excess 4.8 mmol/L (-3.0-3); Arterial Blood Gas Oxygen Sat 96.1 mmHG (95.0-100.0); Arterial COHb 0.3 % (0.0-3.0); Arterial Fraction of Oxyhgb 95.7 % (93.0-99.0); Arterial HCO3 28.3 mmol/L (22.0-26.0); Arterial MetHb 0.1 % (0.0-1.5); Arterial pCO2 37.6 mmhg (35-45); MODE MASK - SIMPLE; Site Right Radial
[2019-03-19 11:18] LABS: GIANT THROMBO% (M) 2 % (0-0); METAMYELOCYTES %M 1 % (0-0); MYELOCYTES % (M) 1 % (0-0); POLYCHROMASIA 1+ (0-0); REACTIVE LYMPHOCYTES #M 0.2 10^3/ul (0.0-0.0); REACTIVE LYMPHOCYTES% (M) 3 % (0-0); SPHEROCYTES 1+ (0-0)
[2019-03-19 14:31] LABS: PROCALCITONIN 0.31 ng/mL (0.00-0.10)
[2019-03-19 15:56] LABS: ADD MAN DIFF? NO
[2019-03-19 15:58] LABS: ABNORMAL IP MESSAGE 1; BASOPHIL # 0.1 10^3/ul (0.0-0.1); BASOPHILS % 0.7 % (0.0-2.0); EOSINOPHILS # 0.2 10^3/ul (0.0-0.5); EOSINOPHILS % 2.2 % (0.0-7.0); HEMATOCRIT 34.2 % (42.0-52.0); HEMOGLOBIN 11.3 g/dl (14.0-18.0); LYMPHOCYTES # 0.3 10^3/ul (0.8-2.9); LYMPHOCYTES % 4.8 % (15.0-51.0); MEAN CORPUSCULAR HEMOGLOBIN 31.3 pg (29.0-33.0); MEAN CORPUSCULAR VOLUME 94.7 fl (82.0-101.0); MEAN PLATELET VOLUME 9.3 fl (7.4-10.4); MONOCYTE # 0.7 10^3/ul (0.3-0.9); MONOCYTES % 9.1 % (0.0-11.0); NEUTROPHIL # 5.8 10^3/ul (1.6-7.5); NEUTROPHILS % 81.7 % (39.0-77.0); PLATELET COUNT 459 10^3/UL (140-415); POSITIVE DIFF @See below; RED BLOOD COUNT 3.61 10^6/ul (4.70-6.10); RED CELL DISTRIBUTION WIDTH 13.3 % (11.5-14.5)
[2019-03-19 15:58] LABS: WHITE BLOOD COUNT 7.1 10^3/ul (4.8-10.8)
[2019-03-19 16:42] LABS: BAND NEUTROPHILS #M 1.1 10^3/ul (0.0-0.6); BAND NEUTROPHILS % (M) 16 % (0-4); BASOPHILS % (M) 1 % (0-2); EOSINOPHILS % (M) 2 % (0-7); LYMPHOCYTES % (M) 1 % (15-51); METAMYELOCYTES #M 0.1 10^3/ul (0.0-0.0); METAMYELOCYTES %M 2 % (0-0); MONOCYTE #M 0.8 10^3/ul (0.3-0.9); MONOCYTES % (M) 12 % (0-11); PLATELET ESTIMATE NORMAL; SEG NEUT #M 4.8 10^3/ul (1.6-7.5); SEGMENTED NEUTROPHILS (M) % 66 % (39-77); SMUDGE%M 6 % (0-0)
[2019-03-19] MEDS ORDERED: INSULIN GLARGINE [LANTus] (100 UNITS/ML) SYG SC (20:00)
[2019-03-19] MEDS: SENNA TAB PO (22:43)
[2019-03-19] MEDS: INSULIN GLARGINE [LANTus] (100 UNITS/ML) SYG SC (22:45)
[2019-03-20] MEDS: ALBUTEROL 0.083% (NEB) 2.5 MG/3 ML AMP HHN ×6 (00:53→21:50)
[2019-03-20] MEDS: INSULIN ASPART [NOVOLOG] 3 ML PEN SC ×3 (06:46→22:53)
[2019-03-20 07:13] LABS: ADD MAN DIFF? NO
[2019-03-20 07:17] LABS: ABNORMAL IP MESSAGE 1; BASOPHIL # 0.1 10^3/ul (0.0-0.1); BASOPHILS % 1.3 % (0.0-2.0); EOSINOPHILS # 0.3 10^3/ul (0.0-0.5); EOSINOPHILS % 5.5 % (0.0-7.0); HEMATOCRIT 33.4 % (42.0-52.0); HEMOGLOBIN 10.9 g/dl (14.0-18.0); LYMPHOCYTES # 0.3 10^3/ul (0.8-2.9); LYMPHOCYTES % 5.3 % (15.0-51.0); MEAN CORPUSCULAR HEMOGLOBIN 31.7 pg (29.0-33.0); MEAN CORPUSCULAR HGB CONC 32.6 g/dl (32.0-37.0); MEAN CORPUSCULAR VOLUME 97.1 fl (82.0-101.0); MEAN PLATELET VOLUME 9.3 fl (7.4-10.4); MONOCYTE # 0.8 10^3/ul (0.3-0.9); MONOCYTES % 12.5 % (0.0-11.0); NEUTROPHIL # 4.4 10^3/ul (1.6-7.5); NEUTROPHILS % 73.6 % (39.0-77.0); PLATELET COUNT 446 10^3/UL (140-415); POSITIVE DIFF @See below; RED BLOOD COUNT 3.44 10^6/ul (4.70-6.10); RED CELL DISTRIBUTION WIDTH 13.3 % (11.5-14.5)
[2019-03-20 07:55] LABS: PROCALCITONIN 0.35 ng/mL (0.00-0.10)
[2019-03-20] MEDS: DOCUSATE SODIUM 10 MG/ML (10ML CUP) GTB ×2 (09:00→21:12)
[2019-03-20] MEDS: SILVER SULFADIAZINE 1% 25 GM CR TOP ×3 (09:00→18:30)
[2019-03-20 09:21] LABS: ACANTHOCYTES 1+ (0-0); ANISOCYTOSIS 1+ (0-0); BAND NEUTROPHILS #M 2.6 10^3/ul (0.0-0.6); BAND NEUTROPHILS % (M) 32 % (0-4); BASOPHILS % (M) 1 % (0-2); EOSINOPHILS % (M) 4 % (0-7); LYMPHOCYTES #M 0.4 10^3/ul (0.8-2.9); LYMPHOCYTES % (M) 5 % (15-51); MONOCYTE #M 0.8 10^3/ul (0.3-0.9); MONOCYTES % (M) 10 % (0-11); PLATELET ESTIMATE NORMAL; PROMYELOCYTES % (M) 1 % (0-0); SEGMENTED NEUTROPHILS (M) % 46 % (39-77); SMUDGE%M 12 % (0-0); STOMATOCYTES 1+ (0-0)
[2019-03-20] MEDS: MULTIVITAMINS 30 ML CUP GTB (11:48)
[2019-03-20] MEDS: ASCORBIC ACID 500 MG TAB GTB (11:48)
[2019-03-20] MEDS: ESCITALOPRAM 10 MG TAB GTB (11:50)
[2019-03-20] MEDS: ENOXAPARIN 30 MG/0.3 ML SYG SC (11:53)
[2019-03-20] MEDS: AMOXICILLIN/CLAV 875 MG TAB GTB ×2 (12:03→21:12)
[2019-03-20] MEDS: morphine 2 MG INJ IV (18:19)
[2019-03-20] MEDS: HYDROGEN PEROXIDE 118 ML TOP (18:20)
[2019-03-20] MEDS: NYSTATIN 15 GM CR TOP ×3 (18:20→21:12)
[2019-03-20] MEDS: COLLAGENASE 5 GM (UD JAR) TOP ×2 (18:33→21:12)
[2019-03-20] MEDS: SENNA TAB PO (21:12)
[2019-03-20] MEDS: INSULIN GLARGINE [LANTus] (100 UNITS/ML) SYG SC (21:14)
[2019-03-21] MEDS: ALBUTEROL 0.083% (NEB) 2.5 MG/3 ML AMP HHN ×6 (01:48→21:00)
[2019-03-21] MEDS: INSULIN ASPART [NOVOLOG] 3 ML PEN SC ×3 (06:23→22:00)
[2019-03-21] MEDS: ESCITALOPRAM 10 MG TAB GTB (08:10)
[2019-03-21] MEDS: AMOXICILLIN/CLAV 875 MG TAB GTB ×2 (08:10→20:19)
[2019-03-21] MEDS: COLLAGENASE 5 GM (UD JAR) TOP ×2 (08:10→20:19)
[2019-03-21] MEDS: DOCUSATE SODIUM 10 MG/ML (10ML CUP) GTB ×2 (08:10→20:19)
[2019-03-21] MEDS: ASCORBIC ACID 500 MG TAB GTB (08:10)
[2019-03-21] MEDS: MULTIVITAMINS 30 ML CUP GTB (08:10)
[2019-03-21] MEDS: NYSTATIN 15 GM CR TOP ×3 (08:11→20:19)
[2019-03-21] MEDS: HYDROGEN PEROXIDE 118 ML TOP (08:11)
[2019-03-21] MEDS: ENOXAPARIN 30 MG/0.3 ML SYG SC (08:28)
[2019-03-21] MEDS: morphine 2 MG INJ IV ×2 (13:33→20:59)
[2019-03-21] MEDS: INSULIN GLARGINE [LANTus] (100 UNITS/ML) SYG SC (20:17)
[2019-03-21] MEDS: SENNA TAB PO (20:19)
[2019-03-22] MEDS: ALBUTEROL 0.083% (NEB) 2.5 MG/3 ML AMP HHN ×6 (01:00→20:17)
[2019-03-22] MEDS: INSULIN ASPART [NOVOLOG] 3 ML PEN SC ×3 (06:16→22:31)
[2019-03-22 06:37] LABS: ADD MAN DIFF? NO
[2019-03-22 06:45] LABS: ABNORMAL IP MESSAGE 1; BASOPHIL # 0.1 10^3/ul (0.0-0.1); BASOPHILS % 1.3 % (0.0-2.0); EOSINOPHILS # 0.6 10^3/ul (0.0-0.5); EOSINOPHILS % 8.4 % (0.0-7.0); HEMATOCRIT 34.4 % (42.0-52.0); HEMOGLOBIN 10.9 g/dl (14.0-18.0); LYMPHOCYTES # 0.5 10^3/ul (0.8-2.9); LYMPHOCYTES % 6.4 % (15.0-51.0); MEAN CORPUSCULAR HEMOGLOBIN 31.1 pg (29.0-33.0); MEAN CORPUSCULAR HGB CONC 31.7 g/dl (32.0-37.0); MEAN CORPUSCULAR VOLUME 98.3 fl (82.0-101.0); MONOCYTE # 0.8 10^3/ul (0.3-0.9); MONOCYTES % 11.8 % (0.0-11.0); NEUTROPHILS % 70.8 % (39.0-77.0); PLATELET COUNT 496 10^3/UL (140-415); POSITIVE DIFF @See below; RED CELL DISTRIBUTION WIDTH 13.3 % (11.5-14.5)
[2019-03-22] MEDS: morphine 2 MG INJ IV ×2 (07:04→20:35)
[2019-03-22 07:10] LABS: ANION GAP 6 (5-13); BLOOD UREA NITROGEN 35 mg/dl (7-20); CALCIUM 9.2 mg/dl (8.4-10.2); CARBON DIOXIDE 34 mmol/L (21-31); CHLORIDE 102 mmol/L (97-110); CREATININE 0.86 mg/dl (0.61-1.24); GLUCOSE 161 mg/dl (70-220); POTASSIUM 4.3 mmol/L (3.5-5.1); SODIUM 142 mmol/L (135-144)
[2019-03-22 07:30] LABS: PROCALCITONIN 0.43 ng/mL (0.00-0.10)
[2019-03-22] MEDS: DOCUSATE SODIUM 10 MG/ML (10ML CUP) GTB ×2 (09:00→20:40)
[2019-03-22] MEDS: ASCORBIC ACID 500 MG TAB GTB (10:19)
[2019-03-22] MEDS: ESCITALOPRAM 10 MG TAB GTB (10:19)
[2019-03-22] MEDS: AMOXICILLIN/CLAV 875 MG TAB GTB (10:19)
[2019-03-22] MEDS: MULTIVITAMINS 30 ML CUP GTB (10:20)
[2019-03-22] MEDS: ENOXAPARIN 30 MG/0.3 ML SYG SC (10:20)
[2019-03-22] MEDS: COLLAGENASE 5 GM (UD JAR) TOP ×2 (10:28→20:35)
[2019-03-22] MEDS: HYDROGEN PEROXIDE 118 ML TOP (10:29)
[2019-03-22] MEDS: NYSTATIN 15 GM CR TOP ×3 (10:29→20:36)
[2019-03-22] MEDS: ACETAMINOPHEN 650MG/20.3ML CUP GTB (13:33)
[2019-03-22] MEDS: MEROPENEM 1 GM/50ML(PMX) 50 ML IVPB (17:42)
[2019-03-22] MEDS: INSULIN GLARGINE [LANTus] (100 UNITS/ML) SYG SC (20:19)
[2019-03-22] MEDS: DOXYCYCLINE 100 MG TAB GTB (20:34)
[2019-03-22] MEDS: SENNA TAB PO (20:40)
[2019-03-23] MEDS: METOCLOPRAMIDE 10 MG INJ IV ×4 (00:38→18:34)
[2019-03-23] MEDS: ALBUTEROL 0.083% (NEB) 2.5 MG/3 ML AMP HHN ×6 (02:18→21:07)
[2019-03-23] MEDS: INSULIN ASPART [NOVOLOG] 3 ML PEN SC ×3 (06:28→22:00)
[2019-03-23 07:19] LABS: ADD MAN DIFF? NO
[2019-03-23 07:23] LABS: ABNORMAL IP MESSAGE 1; BASOPHIL # 0.1 10^3/ul (0.0-0.1); BASOPHILS % 1.2 % (0.0-2.0); EOSINOPHILS # 0.4 10^3/ul (0.0-0.5); EOSINOPHILS % 6.4 % (0.0-7.0); HEMATOCRIT 34.1 % (42.0-52.0); LYMPHOCYTES # 0.5 10^3/ul (0.8-2.9); LYMPHOCYTES % 6.7 % (15.0-51.0); MEAN CORPUSCULAR HEMOGLOBIN 31.3 pg (29.0-33.0); MEAN CORPUSCULAR HGB CONC 32.3 g/dl (32.0-37.0); MEAN CORPUSCULAR VOLUME 96.9 fl (82.0-101.0); MEAN PLATELET VOLUME 9.2 fl (7.4-10.4); MONOCYTE # 0.9 10^3/ul (0.3-0.9); MONOCYTES % 13.6 % (0.0-11.0); NEUTROPHIL # 4.9 10^3/ul (1.6-7.5); NEUTROPHILS % 71.2 % (39.0-77.0); PLATELET COUNT 437 10^3/UL (140-415); POSITIVE DIFF @See below; RED BLOOD COUNT 3.52 10^6/ul (4.70-6.10); RED CELL DISTRIBUTION WIDTH 13.4 % (11.5-14.5)
[2019-03-23 07:23] LABS: WHITE BLOOD COUNT 6.9 10^3/ul (4.8-10.8)
[2019-03-23] MEDS: MULTIVITAMINS 30 ML CUP GTB (08:44)
[2019-03-23] MEDS: ASCORBIC ACID 500 MG TAB GTB (08:45)
[2019-03-23] MEDS: COLLAGENASE 5 GM (UD JAR) TOP ×3 (08:45→21:57)
[2019-03-23] MEDS: MEROPENEM 1 GM/50ML(PMX) 50 ML IVPB ×2 (08:45→21:57)
[2019-03-23] MEDS: ESCITALOPRAM 10 MG TAB GTB (08:45)
[2019-03-23] MEDS: morphine 2 MG INJ IV ×2 (08:46→14:30)
[2019-03-23] MEDS: DOCUSATE SODIUM 10 MG/ML (10ML CUP) GTB ×2 (08:47→21:00)
[2019-03-23] MEDS: ENOXAPARIN 30 MG/0.3 ML SYG SC (08:50)
[2019-03-23] MEDS: DOXYCYCLINE 100 MG TAB GTB ×2 (09:26→21:57)
[2019-03-23] MEDS: HYDROGEN PEROXIDE 118 ML TOP (09:26)
[2019-03-23] MEDS: NYSTATIN 15 GM CR TOP ×3 (09:27→21:57)
[2019-03-23 09:49] LABS: PROCALCITONIN 0.41 ng/mL (0.00-0.10)
[2019-03-23] MEDS: INSULIN GLARGINE [LANTus] (100 UNITS/ML) SYG SC (20:08)
[2019-03-23] MEDS: SENNA TAB PO (21:00)
[2019-03-24] MEDS: METOCLOPRAMIDE 10 MG INJ IV ×4 (00:31→18:56)
[2019-03-24] MEDS: ALBUTEROL 0.083% (NEB) 2.5 MG/3 ML AMP HHN ×6 (01:00→20:21)
[2019-03-24] MEDS: morphine 2 MG INJ IV ×2 (01:24→08:40)
[2019-03-24] MEDS: INSULIN ASPART [NOVOLOG] 3 ML PEN SC ×3 (06:00→21:38)
[2019-03-24 07:16] LABS: ADD MAN DIFF? NO
[2019-03-24 07:19] LABS: ABNORMAL IP MESSAGE 1; BASOPHIL # 0.1 10^3/ul (0.0-0.1); BASOPHILS % 1.1 % (0.0-2.0); EOSINOPHILS # 0.5 10^3/ul (0.0-0.5); HEMATOCRIT 33.6 % (42.0-52.0); HEMOGLOBIN 10.7 g/dl (14.0-18.0); LYMPHOCYTES # 0.4 10^3/ul (0.8-2.9); LYMPHOCYTES % 7.1 % (15.0-51.0); MEAN CORPUSCULAR HEMOGLOBIN 30.7 pg (29.0-33.0); MEAN CORPUSCULAR HGB CONC 31.8 g/dl (32.0-37.0); MEAN CORPUSCULAR VOLUME 96.6 fl (82.0-101.0); MEAN PLATELET VOLUME 8.9 fl (7.4-10.4); MONOCYTE # 0.9 10^3/ul (0.3-0.9); MONOCYTES % 15.1 % (0.0-11.0); NEUTROPHIL # 3.8 10^3/ul (1.6-7.5); NEUTROPHILS % 67.6 % (39.0-77.0); PLATELET COUNT 433 10^3/UL (140-415); POSITIVE DIFF @See below; RED BLOOD COUNT 3.48 10^6/ul (4.70-6.10); RED CELL DISTRIBUTION WIDTH 13.7 % (11.5-14.5)
[2019-03-24 07:19] LABS: WHITE BLOOD COUNT 5.6 10^3/ul (4.8-10.8)
[2019-03-24] MEDS: DOCUSATE SODIUM 10 MG/ML (10ML CUP) GTB ×2 (09:00→21:00)
[2019-03-24] MEDS: ENOXAPARIN 30 MG/0.3 ML SYG SC (09:17)
[2019-03-24] MEDS: ASCORBIC ACID 500 MG TAB GTB (09:18)
[2019-03-24] MEDS: GUAIFENESIN 20 MG/ML 5ML CUP GTB ×4 (09:18→21:35)
[2019-03-24] MEDS: ESCITALOPRAM 10 MG TAB GTB (09:18)
[2019-03-24] MEDS: DOXYCYCLINE 100 MG TAB GTB ×2 (09:18→21:36)
[2019-03-24] MEDS: MULTIVITAMINS 30 ML CUP GTB ×2 (09:18→09:45)
[2019-03-24] MEDS: MEROPENEM 1 GM/50ML(PMX) 50 ML IVPB ×2 (09:25→21:37)
[2019-03-24] MEDS: L ACIDOPHIL/B LACTIS/B LONGUM CAPSULE GTB ×2 (10:30→21:36)
[2019-03-24 10:32] LABS: BAND NEUTROPHILS #M 1.9 10^3/ul (0.0-0.6); BAND NEUTROPHILS % (M) 34 % (0-4); BASOPHIL #M 0.2 10^3/ul (0.0-0.0); BASOPHILS % (M) 4 % (0-2); EOSINOPHILS % (M) 5 % (0-7); LYMPHOCYTES #M 0.5 10^3/ul (0.8-2.9); LYMPHOCYTES % (M) 10 % (15-51); MONOCYTE #M 0.6 10^3/ul (0.3-0.9); MONOCYTES % (M) 12 % (0-11); PLATELET ESTIMATE NORMAL; POLYCHROMASIA 3+ (0-0); REACTIVE LYMPHOCYTES% (M) 1 % (0-0); SEGMENTED NEUTROPHILS (M) % 34 % (39-77); SMUDGE%M 13 % (0-0)
[2019-03-24] MEDS: HYDROGEN PEROXIDE 118 ML TOP (12:43)
[2019-03-24] MEDS: NYSTATIN 15 GM CR TOP ×3 (12:43→21:37)
[2019-03-24] MEDS: COLLAGENASE 5 GM (UD JAR) TOP ×2 (12:43→21:38)
[2019-03-24] MEDS: HYDROmorphONE 1 MG/ML SYG IV ×4 (12:44→18:56)
[2019-03-24] MEDS: SENNA TAB PO (21:00)
[2019-03-24] MEDS: INSULIN GLARGINE [LANTus] (100 UNITS/ML) SYG SC (21:49)
[2019-03-25] MEDS: ALBUTEROL 0.083% (NEB) 2.5 MG/3 ML AMP HHN ×7 (00:42→20:31)
[2019-03-25] MEDS: HYDROmorphONE 1 MG/ML SYG IV (01:46)
[2019-03-25] MEDS: METOCLOPRAMIDE 10 MG INJ IV ×4 (01:50→17:00)
[2019-03-25] MEDS: GUAIFENESIN 20 MG/ML 5ML CUP GTB ×6 (04:00→21:28)
[2019-03-25] MEDS: INSULIN ASPART [NOVOLOG] 3 ML PEN SC ×3 (06:00→21:37)
[2019-03-25] MEDS: DOCUSATE SODIUM 10 MG/ML (10ML CUP) GTB ×2 (09:00→21:27)
[2019-03-25] MEDS: DOXYCYCLINE 100 MG TAB GTB ×2 (09:05→21:28)
[2019-03-25] MEDS: ESCITALOPRAM 10 MG TAB GTB (09:05)
[2019-03-25] MEDS: COLLAGENASE 5 GM (UD JAR) TOP ×2 (09:05→21:29)
[2019-03-25] MEDS: ASCORBIC ACID 500 MG TAB GTB (09:05)
[2019-03-25] MEDS: MULTIVITAMINS 30 ML CUP GTB (09:05)
[2019-03-25] MEDS: L ACIDOPHIL/B LACTIS/B LONGUM CAPSULE GTB ×2 (09:06→21:28)
[2019-03-25] MEDS: NYSTATIN 15 GM CR TOP ×3 (09:07→21:29)
[2019-03-25] MEDS: HYDROGEN PEROXIDE 118 ML TOP (09:07)
[2019-03-25] MEDS: ENOXAPARIN 30 MG/0.3 ML SYG SC (09:28)
[2019-03-25] MEDS: MEROPENEM 1 GM/50ML(PMX) 50 ML IVPB ×2 (09:43→21:38)
[2019-03-25] MEDS ORDERED: PENDING SANTYL ORDER FOR WOUND CARE XX (15:30)
[2019-03-25] MEDS: SENNA TAB PO (21:29)
[2019-03-25] MEDS: INSULIN GLARGINE [LANTus] (100 UNITS/ML) SYG SC (21:38)
[2019-03-26] MEDS: GUAIFENESIN 20 MG/ML 5ML CUP GTB ×7 (00:55→23:19)
[2019-03-26] MEDS: METOCLOPRAMIDE 10 MG INJ IV ×5 (00:56→23:19)
[2019-03-26] MEDS: ALBUTEROL 0.083% (NEB) 2.5 MG/3 ML AMP HHN ×7 (01:34→21:09)
[2019-03-26] MEDS: INSULIN ASPART [NOVOLOG] 3 ML PEN SC ×3 (05:33→21:49)
[2019-03-26 06:51] LABS: ADD MAN DIFF? NO
[2019-03-26 06:58] LABS: ABNORMAL IP MESSAGE 1; BASOPHIL # 0.1 10^3/ul (0.0-0.1); BASOPHILS % 1.2 % (0.0-2.0); EOSINOPHILS # 0.4 10^3/ul (0.0-0.5); EOSINOPHILS % 7.2 % (0.0-7.0); HEMATOCRIT 31.6 % (42.0-52.0); LYMPHOCYTES # 0.5 10^3/ul (0.8-2.9); LYMPHOCYTES % 8.4 % (15.0-51.0); MEAN CORPUSCULAR HEMOGLOBIN 30.2 pg (29.0-33.0); MEAN CORPUSCULAR HGB CONC 31.6 g/dl (32.0-37.0); MEAN CORPUSCULAR VOLUME 95.5 fl (82.0-101.0); MONOCYTE # 0.9 10^3/ul (0.3-0.9); MONOCYTES % 15.4 % (0.0-11.0); NEUTROPHIL # 3.9 10^3/ul (1.6-7.5); NEUTROPHILS % 67.1 % (39.0-77.0); PLATELET COUNT 363 10^3/UL (140-415); POSITIVE DIFF @See below; RED BLOOD COUNT 3.31 10^6/ul (4.70-6.10); RED CELL DISTRIBUTION WIDTH 13.5 % (11.5-14.5)
[2019-03-26 06:58] LABS: WHITE BLOOD COUNT 5.7 10^3/ul (4.8-10.8)
[2019-03-26 08:20] LABS: PROCALCITONIN 0.22 ng/mL (0.00-0.10)
[2019-03-26] MEDS: HYDROGEN PEROXIDE 118 ML TOP (09:00)
[2019-03-26] MEDS: DOCUSATE SODIUM 10 MG/ML (10ML CUP) GTB ×2 (09:00→20:35)
[2019-03-26] MEDS: ACETAMINOPHEN 650MG/20.3ML CUP GTB (09:05)
[2019-03-26] MEDS: ESCITALOPRAM 10 MG TAB GTB (09:10)
[2019-03-26] MEDS: L ACIDOPHIL/B LACTIS/B LONGUM CAPSULE GTB ×2 (09:10→21:41)
[2019-03-26] MEDS: ASCORBIC ACID 500 MG TAB GTB (09:10)
[2019-03-26] MEDS: DOXYCYCLINE 100 MG TAB GTB ×2 (09:10→20:35)
[2019-03-26] MEDS: ENOXAPARIN 30 MG/0.3 ML SYG SC (09:13)
[2019-03-26] MEDS: MEROPENEM 1 GM/50ML(PMX) 50 ML IVPB ×2 (09:21→20:35)
[2019-03-26] MEDS: COLLAGENASE 5 GM (UD JAR) TOP ×2 (09:29→20:35)
[2019-03-26] MEDS: NYSTATIN 15 GM CR TOP ×3 (09:29→21:38)
[2019-03-26 18:59] LABS: ALANINE AMINOTRANSFERASE 33 IU/L (13-69); ALBUMIN 2.9 g/dl (3.3-4.9); ALKALINE PHOSPHATASE 129 IU/L (42-121); ANION GAP 4 (5-13); ASPARTATE AMINO TRANSFERASE 50 IU/L (15-46); BILIRUBIN,INDIRECT 0.1 mg/dl (0-1.1); BILIRUBIN,TOTAL 0.1 mg/dl (0.2-1.3); BLOOD UREA NITROGEN 37 mg/dl (7-20); CALCIUM 8.8 mg/dl (8.4-10.2); CARBON DIOXIDE 34 mmol/L (21-31); CHLORIDE 103 mmol/L (97-110); CREATININE 0.98 mg/dl (0.61-1.24); GLUCOSE 180 mg/dl (70-220); POTASSIUM 4.1 mmol/L (3.5-5.1); SODIUM 141 mmol/L (135-144); TOTAL PROTEIN 6.5 g/dl (6.1-8.1)
[2019-03-26] MEDS: SENNA TAB PO (20:35)
[2019-03-26] MEDS: INSULIN GLARGINE [LANTus] (100 UNITS/ML) SYG SC (21:48)
[2019-03-26] MEDS: HYDROmorphONE 1 MG/ML SYG IV (22:10)
[2019-03-27] MEDS: ALBUTEROL 0.083% (NEB) 2.5 MG/3 ML AMP HHN ×6 (02:01→21:08)
[2019-03-27] MEDS: GUAIFENESIN 20 MG/ML 5ML CUP GTB ×5 (03:45→20:26)
[2019-03-27] MEDS: INSULIN ASPART [NOVOLOG] 3 ML PEN SC ×3 (06:00→21:17)
[2019-03-27] MEDS: METOCLOPRAMIDE 10 MG INJ IV ×3 (06:03→17:32)
[2019-03-27] MEDS: DOCUSATE SODIUM 10 MG/ML (10ML CUP) GTB (09:00)
[2019-03-27] MEDS: MEROPENEM 1 GM/50ML(PMX) 50 ML IVPB ×2 (09:04→21:17)
[2019-03-27] MEDS: MULTIVITAMINS 30 ML CUP GTB (09:05)
[2019-03-27] MEDS: DOXYCYCLINE 100 MG TAB GTB ×2 (09:05→20:26)
[2019-03-27] MEDS: L ACIDOPHIL/B LACTIS/B LONGUM CAPSULE GTB ×2 (09:05→20:26)
[2019-03-27] MEDS: ESCITALOPRAM 10 MG TAB GTB (09:06)
[2019-03-27] MEDS: ASCORBIC ACID 500 MG TAB GTB (09:06)
[2019-03-27] MEDS: NYSTATIN 15 GM CR TOP ×3 (09:07→20:26)
[2019-03-27] MEDS: COLLAGENASE 5 GM (UD JAR) TOP ×2 (09:08→20:26)
[2019-03-27] MEDS: ENOXAPARIN 30 MG/0.3 ML SYG SC (09:09)
[2019-03-27] MEDS ORDERED: DOCUSATE SODIUM 10 MG/ML (10ML CUP) GTB (14:00)
[2019-03-27] MEDS: ACETAMINOPHEN 650MG/20.3ML CUP GTB ×2 (15:02→20:21)
[2019-03-27] MEDS: SOD CHLORIDE 0.9% 1,000 ML IV ×2 (16:31→22:30)
[2019-03-27] MEDS: SENNA TAB PO (20:26)
[2019-03-27] MEDS: INSULIN GLARGINE [LANTus] (100 UNITS/ML) SYG SC (20:30)
[2019-03-27] MEDS: traZODone 50 MG TAB GTB (23:00)
[2019-03-28] MEDS: ALBUTEROL 0.083% (NEB) 2.5 MG/3 ML AMP HHN ×6 (00:52→20:02)
[2019-03-28] MEDS: METOCLOPRAMIDE 10 MG INJ IV ×4 (02:40→17:26)
[2019-03-28] MEDS: GUAIFENESIN 20 MG/ML 5ML CUP GTB ×6 (02:41→20:39)
[2019-03-28] MEDS: SOD CHLORIDE 0.9% 1,000 ML IV (05:53)
[2019-03-28] MEDS: INSULIN ASPART [NOVOLOG] 3 ML PEN SC ×3 (06:00→21:56)
[2019-03-28] MEDS: MULTIVITAMINS 30 ML CUP GTB (08:17)
[2019-03-28] MEDS: L ACIDOPHIL/B LACTIS/B LONGUM CAPSULE GTB ×2 (08:18→20:39)
[2019-03-28] MEDS: DOXYCYCLINE 100 MG TAB GTB ×2 (08:18→20:39)
[2019-03-28] MEDS: ESCITALOPRAM 10 MG TAB GTB (08:18)
[2019-03-28] MEDS: ENOXAPARIN 30 MG/0.3 ML SYG SC (08:18)
[2019-03-28] MEDS: ASCORBIC ACID 500 MG TAB GTB (08:18)
[2019-03-28] MEDS: NYSTATIN 15 GM CR TOP ×3 (08:18→20:40)
[2019-03-28] MEDS: COLLAGENASE 5 GM (UD JAR) TOP ×2 (08:21→20:40)
[2019-03-28] MEDS: MEROPENEM 1 GM/50ML(PMX) 50 ML IVPB ×2 (08:30→20:39)
[2019-03-28] MEDS: INSULIN GLARGINE [LANTus] (100 UNITS/ML) SYG SC (20:41)
[2019-03-28] MEDS: ACETAMINOPHEN 650MG/20.3ML CUP GTB (21:56)
[2019-03-29] MEDS: METOCLOPRAMIDE 10 MG INJ IV ×4 (00:40→17:08)
[2019-03-29] MEDS: GUAIFENESIN 20 MG/ML 5ML CUP GTB ×6 (00:40→21:19)
[2019-03-29] MEDS: ALBUTEROL 0.083% (NEB) 2.5 MG/3 ML AMP HHN ×6 (01:00→20:16)
[2019-03-29] MEDS: SOD CHLORIDE 0.9% 1,000 ML IV ×2 (01:54→18:38)
[2019-03-29] MEDS: INSULIN ASPART [NOVOLOG] 3 ML PEN SC ×3 (06:00→21:26)
[2019-03-29 06:32] LABS: WHITE BLOOD COUNT 4.8 10^3/ul (4.8-10.8)
[2019-03-29 06:32] LABS: ABNORMAL IP MESSAGE 1; HEMATOCRIT 27.5 % (42.0-52.0); HEMOGLOBIN 8.9 g/dl (14.0-18.0); MEAN CORPUSCULAR HEMOGLOBIN 31.1 pg (29.0-33.0); MEAN CORPUSCULAR HGB CONC 32.4 g/dl (32.0-37.0); MEAN CORPUSCULAR VOLUME 96.2 fl (82.0-101.0); MEAN PLATELET VOLUME 9.1 fl (7.4-10.4); PLATELET COUNT 273 10^3/UL (140-415); POSITIVE DIFF @See below; RED BLOOD COUNT 2.86 10^6/ul (4.70-6.10); RED CELL DISTRIBUTION WIDTH 13.6 % (11.5-14.5)
[2019-03-29 06:51] LABS: ADD MAN DIFF? YES
[2019-03-29 06:56] LABS: ALANINE AMINOTRANSFERASE 24 IU/L (13-69); ALBUMIN 2.2 g/dl (3.3-4.9); ALBUMIN/GLOBULIN RATIO 0.75; ALKALINE PHOSPHATASE 92 IU/L (42-121); ANION GAP 2 (5-13); ASPARTATE AMINO TRANSFERASE 41 IU/L (15-46); BILIRUBIN,INDIRECT 0.1 mg/dl (0-1.1); BILIRUBIN,TOTAL 0.1 mg/dl (0.2-1.3); BLOOD UREA NITROGEN 30 mg/dl (7-20); CALCIUM 8.1 mg/dl (8.4-10.2); CARBON DIOXIDE 31 mmol/L (21-31); CHLORIDE 109 mmol/L (97-110); CREATININE 0.79 mg/dl (0.61-1.24); GLUCOSE 67 mg/dl (70-220); POTASSIUM 3.7 mmol/L (3.5-5.1); SODIUM 142 mmol/L (135-144); TOTAL PROTEIN 5.1 g/dl (6.1-8.1)
[2019-03-29 08:44] LABS: PROCALCITONIN 0.18 ng/mL (0.00-0.10)
[2019-03-29] MEDS: ASCORBIC ACID 500 MG TAB GTB (09:04)
[2019-03-29] MEDS: NYSTATIN 15 GM CR TOP ×3 (09:04→21:25)
[2019-03-29] MEDS: ESCITALOPRAM 10 MG TAB GTB (09:04)
[2019-03-29] MEDS: L ACIDOPHIL/B LACTIS/B LONGUM CAPSULE GTB ×2 (09:04→21:19)
[2019-03-29] MEDS: DOXYCYCLINE 100 MG TAB GTB ×2 (09:05→21:19)
[2019-03-29] MEDS: MULTIVITAMINS 30 ML CUP GTB (09:05)
[2019-03-29] MEDS: COLLAGENASE 5 GM (UD JAR) TOP ×2 (09:05→21:25)
[2019-03-29] MEDS: ENOXAPARIN 30 MG/0.3 ML SYG SC (09:12)
[2019-03-29] MEDS: MEROPENEM 1 GM/50ML(PMX) 50 ML IVPB ×2 (09:26→21:21)
[2019-03-29 09:32] LABS: ANISOCYTOSIS 1+ (0-0); BAND NEUTROPHILS #M 1.1 10^3/ul (0.0-0.6); BAND NEUTROPHILS % (M) 23 % (0-4); BASOPHILS % (M) 1 % (0-2); EOSINOPHILS % (M) 3 % (0-7); GIANT THROMBO% (M) 1 % (0-0); LYMPHOCYTES #M 0.4 10^3/ul (0.8-2.9); LYMPHOCYTES % (M) 10 % (15-51); MONOCYTE #M 0.7 10^3/ul (0.3-0.9); MONOCYTES % (M) 16 % (0-11); PLATELET ESTIMATE NORMAL; SEG NEUT #M 2.3 10^3/ul (1.6-7.5); SEGMENTED NEUTROPHILS (M) % 47 % (39-77); SMUDGE%M 11 % (0-0)
[2019-03-29] MEDS: DEXTROSE 50% 50 ML SYRINGE IV ×2 (14:19→21:15)
[2019-03-29] MEDS: INSULIN GLARGINE [LANTus] (100 UNITS/ML) SYG SC (22:40)
[2019-03-30] MEDS: METOCLOPRAMIDE 10 MG INJ IV ×4 (00:17→18:40)
[2019-03-30] MEDS: GUAIFENESIN 20 MG/ML 5ML CUP GTB ×7 (00:17→21:02)
[2019-03-30] MEDS: ALBUTEROL 0.083% (NEB) 2.5 MG/3 ML AMP HHN ×6 (01:00→19:50)
[2019-03-30] MEDS: ACETAMINOPHEN 650MG/20.3ML CUP GTB ×2 (01:48→21:06)
[2019-03-30] MEDS: INSULIN ASPART [NOVOLOG] 3 ML PEN SC ×3 (05:24→21:24)
[2019-03-30 06:19] LABS: ADD MAN DIFF? NO
[2019-03-30 06:26] LABS: WHITE BLOOD COUNT 4.1 10^3/ul (4.8-10.8)
[2019-03-30 06:26] LABS: ABNORMAL IP MESSAGE 1; EOSINOPHILS # 0.4 10^3/ul (0.0-0.5); EOSINOPHILS % 10.6 % (0.0-7.0); HEMATOCRIT 29.5 % (42.0-52.0); HEMOGLOBIN 9.5 g/dl (14.0-18.0); LYMPHOCYTES # 0.4 10^3/ul (0.8-2.9); LYMPHOCYTES % 8.8 % (15.0-51.0); MEAN CORPUSCULAR HEMOGLOBIN 31.3 pg (29.0-33.0); MEAN CORPUSCULAR HGB CONC 32.2 g/dl (32.0-37.0); MONOCYTE # 0.6 10^3/ul (0.3-0.9); MONOCYTES % 13.5 % (0.0-11.0); NEUTROPHIL # 2.7 10^3/ul (1.6-7.5); NEUTROPHILS % 65.4 % (39.0-77.0); PLATELET COUNT 270 10^3/UL (140-415); POSITIVE DIFF @See below; RED BLOOD COUNT 3.04 10^6/ul (4.70-6.10); RED CELL DISTRIBUTION WIDTH 13.5 % (11.5-14.5)
[2019-03-30 06:55] LABS: ANION GAP 4 (5-13); BLOOD UREA NITROGEN 26 mg/dl (7-20); CALCIUM 8.2 mg/dl (8.4-10.2); CARBON DIOXIDE 30 mmol/L (21-31); CHLORIDE 108 mmol/L (97-110); CREATININE 0.78 mg/dl (0.61-1.24); GLUCOSE 87 mg/dl (70-220); POTASSIUM 3.8 mmol/L (3.5-5.1); SODIUM 142 mmol/L (135-144)
[2019-03-30] MEDS: MULTIVITAMINS 30 ML CUP GTB (08:32)
[2019-03-30] MEDS: ESCITALOPRAM 10 MG TAB GTB (08:33)
[2019-03-30] MEDS: ASCORBIC ACID 500 MG TAB GTB (08:33)
[2019-03-30] MEDS: DOXYCYCLINE 100 MG TAB GTB (08:33)
[2019-03-30] MEDS: L ACIDOPHIL/B LACTIS/B LONGUM CAPSULE GTB ×2 (08:33→21:02)
[2019-03-30] MEDS: COLLAGENASE 5 GM (UD JAR) TOP ×2 (08:33→21:24)
[2019-03-30] MEDS: MEROPENEM 1 GM/50ML(PMX) 50 ML IVPB (08:36)
[2019-03-30] MEDS: SOD CHLORIDE 0.9% 1,000 ML IV (08:36)
[2019-03-30] MEDS: NYSTATIN 15 GM CR TOP ×3 (08:37→21:02)
[2019-03-30] MEDS: ENOXAPARIN 30 MG/0.3 ML SYG SC (09:19)
[2019-03-30] MEDS ORDERED: INSULIN GLARGINE [LANTus] (100 UNITS/ML) SYG SC (20:00)
[2019-03-30] MEDS: INSULIN GLARGINE [LANTus] (100 UNITS/ML) SYG SC (21:22)
[2019-03-31] MEDS: METOCLOPRAMIDE 10 MG INJ IV ×4 (00:57→18:06)
[2019-03-31] MEDS: ALBUTEROL 0.083% (NEB) 2.5 MG/3 ML AMP HHN ×6 (01:00→21:00)
[2019-03-31] MEDS: GUAIFENESIN 20 MG/ML 5ML CUP GTB ×5 (04:00→18:07)
[2019-03-31] MEDS: INSULIN ASPART [NOVOLOG] 3 ML PEN SC ×2 (06:00→14:00)
[2019-03-31 08:35] LABS: PROCALCITONIN 0.16 ng/mL (0.00-0.10)
[2019-03-31] MEDS: HYDROmorphONE 1 MG/ML SYG IV ×2 (08:38→15:11)
[2019-03-31] MEDS: L ACIDOPHIL/B LACTIS/B LONGUM CAPSULE GTB (09:48)
[2019-03-31] MEDS: ASCORBIC ACID 500 MG TAB GTB (09:48)
[2019-03-31] MEDS: ESCITALOPRAM 10 MG TAB GTB (09:49)
[2019-03-31] MEDS: ENOXAPARIN 30 MG/0.3 ML SYG SC (09:50)
[2019-03-31] MEDS: COLLAGENASE 5 GM (UD JAR) TOP (09:55)
[2019-03-31] MEDS: MULTIVITAMINS 30 ML CUP GTB (09:55)
[2019-03-31] MEDS: NYSTATIN 15 GM CR TOP ×2 (09:56→15:09)
[2019-03-31] MEDS ORDERED: FUROSEMIDE 40 MG INJ IV (14:30)
[2019-03-31] MEDS: INSULIN GLARGINE [LANTus] (100 UNITS/ML) SYG SC ×2 (18:55→19:14)
[2019-03-31] MEDS: POTASSIUM CHLORIDE 20 MEQ POWDER FOR ORAL SOLN GTB (19:13)
== END 2019-03-31 19:00 | disposition home health service (06) | DRG 91 ==
LOC: VRC 19:41
PROVIDERS: Physical Medicine & Rehabilitation
PROC: F07Z5ZZ Bed Mobility Treatment (ICD-10-PCS; principal; 2019-03-18)
PROC: F08Z2ZZ Grooming/Personal Hygiene Treatment (ICD-10-PCS; 2019-03-18)
DX: G92 Toxic encephalopathy (principal); J18.9 Pneumonia, unspecified organism; E46 Unspecified protein-calorie malnutrition; Z68.1 Body mass index [BMI] 19.9 or less, adult; F33.1 Major depressive disorder, recurrent, moderate; R13.10 Dysphagia, unspecified; C02.9 Malignant neoplasm of tongue, unspecified; E11.9 Type 2 diabetes mellitus without complications; Z98.890 Other specified postprocedural states; R19.7 Diarrhea, unspecified
CPT/HCPCS: 36600; 71045; 71250; 80048; 80053; 82803; 82962; 84145; 84439; 84443; 84484; 85025; 87081; 87086; 92526; 92610; 93005; 94640; 94664; 94667; 94668; 97110; 97112; 97116; 97163; 97166; 97530; 97535; 97542